=== PATIENT | male | born 1980 | race Caucasian/White ===

== ENCOUNTER 2017-12-14 21:16 | Emergency (ER) | payer OTHER ==
[~2017-12-14] VITALS: Ht 172.7 cm; Wt 63.5 kg
[~2017-12-14 21:16] MED LIST: CYCL10 PO; HYDACE5 PO; Miralax17 GM PO
[2017-12-14 22:41] LABS: BASOPHILS ABSOLUTE AUTO 0.06 K/mm3 (0.00-0.23); BASOPHILS PERCENT AUTO 1 % (0-2); EOSINOPHILS ABSOLUTE AUTO 0.09 K/mm3 (0.00-0.68); EOSINOPHILS PERCENT AUTO 1 % (0-6); Hematocrit 38.2 % (37.0-53.0); Hemoglobin 12.9 g/dL (13.5-17.5); IMMATURE GRAN ABSOLUTE AUTO 0.04 K/mm3 (0.00-0.10); IMMATURE GRAN PERCENT AUTO 0 % (0-1); LYMPHOCYTES ABSOLUTE AUTO 1.37 K/mm3 (0.84-5.20); LYMPHOCYTES PERCENT AUTO 10 % (21-46); MONOCYTES ABSOLUTE AUTO 0.94 K/mm3 (0.16-1.47); MONOCYTES PERCENT AUTO 7 % (4-13); Mean Corpuscular HGB 29.8 pg (26.0-34.0); Mean Corpuscular HGB Conc 33.8 g/dL (31.5-36.5); Mean Corpuscular Volume 88 fL (80-100); Mean Platelet Volume 9.2 fL (9.1-12.4); NEUTROPHILS ABSOLUTE AUTO 10.62 K/mm3 (1.96-9.15); NEUTROPHILS PERCENT AUTO 81 % (41-73); Platelet Count 233 K/mm3 (150-400); RDW Coefficient Variation 12.8 % (11.7-14.2); RDW Standard Deviation 41.7 fL (35.1-46.3); Red Blood Cell Count 4.33 M/mm3 (4.30-5.90); White Blood Cell Count 13.12 K/mm3 (4.00-11.30)
[2017-12-14 22:59] LABS: Alanine Aminotransfer (ALT/SGP 24 U/L (12-78); Albumin, Blood 3.9 g/dL (3.4-5.0); Albumin/Globulin Ratio 1.1 (0.8-1.8); Alk Phos 96 U/L (50-136); Anion Gap 9 mmol/L (6-16); Aspartate Aminotrans (AST/SGOT 17 U/L (12-37); Bilirubin, Total 0.7 mg/dL (0.1-1.0); Blood Urea Nitrogen 16 mg/dL (8-24); Bun/Creatinine Ratio 19.3 (12.0-20.0); CO2, Blood 28 mmol/L (21-32); Calcium, Blood 8.8 mg/dL (8.5-10.1); Chloride, Blood 101 mmol/L (98-108); Creatinine, Blood 0.83 mg/dL (0.60-1.20); Globulin, Blood 3.7 g/dL (2.2-4.0); Glomerular Filtration Rate >60 (60-); Glucose, Blood 87 mg/dL (70-99); Potassium, Blood 3.7 mmol/L (3.5-5.5); Sodium, Blood 138 mmol/L (136-145); Total Protein, Blood 7.6 g/dL (6.4-8.2)
[2017-12-15] MEDS ORDERED: IBUP800 PO (00:11)
[2017-12-15] MEDS ORDERED: Bactrim Ds Tab1 EACH PO (00:11)
[2017-12-15] MEDS ORDERED: CEPH500 PO (00:11)
== END 2017-12-15 00:25 | disposition home or self-care (01) ==
LOC: ER 21:16
PROVIDERS: Physician Assistant
DX: L03.116 Cellulitis of left lower limb (principal); F17.210 Nicotine dependence, cigarettes, uncomplicated
CPT/HCPCS: 10060; 36415; 80053; 83605; 85025; 87040; 87070; 87077; 87147; 87186; 87205; 96374; 96375; 99283; J0696; J1885; J2405

== ENCOUNTER 2019-05-18 15:00 | Emergency (ER) | payer OTHER ==
[~2019-05-18] VITALS: Ht 170.2 cm; Wt 65.8 kg
[~2019-05-18 15:00] MED LIST changes: +Bactrim Ds Tab1 EACH PO; +CEPH500 PO; +IBUP800 PO
[2019-05-18] MEDS ORDERED: Bactrim Ds Tab1 EACH PO (15:45)
[2019-05-18] MEDS ORDERED: IBUP800 PO (15:45)
== END 2019-05-18 15:49 | disposition home or self-care (01) ==
LOC: ER 15:00
DX: L02.11 Cutaneous abscess of neck (principal); F17.200 Nicotine dependence, unspecified, uncomplicated
CPT/HCPCS: 10060; 99282-25

== ENCOUNTER 2019-10-06 20:11 | Emergency (ER) | payer OTHER ==
[~2019-10-06] VITALS: Ht 170.2 cm; Wt 63.5 kg
[2019-10-06] MEDS ORDERED: Amoxicillin875 MG PO (22:51)
[2019-10-06] MEDS ORDERED: Roxicodone5 MG PO (22:51)
[2019-10-06] MEDS ORDERED: PAROEX473 ML MM (22:51)
== END 2019-10-06 23:00 | disposition home or self-care (01) ==
LOC: ER 20:11
DX: K02.9 Dental caries, unspecified (principal); F17.210 Nicotine dependence, cigarettes, uncomplicated
CPT/HCPCS: 64400; 99282-25; A9270